=== PATIENT | male | born 1935 | race Caucasian/White ===

== ENCOUNTER 2016-09-21 18:40 | Inpatient (IN) | payer OTHER ==
[~2016-09-21] VITALS: Ht 172.7 cm; Wt 63.9 kg
--- NOTE | ~2016-09-21 | 2DMMODE ---
[facility] [place] [address] 2 D/M-MODE ECHOCARDIOGRAM Name: JONATHAN DEY Room #: 217-P [facility]#: [id number] Admission: 09/21/16 Attend Phys: Derick Sullivan, Discharge: Date of : 35 Date of Service: 09/23/16 0836 Report #: [id number] THIS REPORT FOR: //name// Transthoracic Echocardiography Ordering physician: Marina Cardona Referring physician: Marina Cardona Manager Enrollment: ERIK Bowen Indications/History: COPD, CAD, CABG, HTN, Asystole. BP: 105 / HR: 64bpm Height: 67in Weight: 170.6lb 58 Study data: M-mode, complete 2D, complete spectral Doppler, and color Doppler. Location: Bedside. Routine. Image quality was good. 2D measurements Normal Normal LVID ED 50.1mm 36-57 IVS ED 10.9mm 6-11 LVID ES 32.8mm 23-40 LVPW ED 11.1mm 6-11 LA volume index 2ml/m2 16-28 AoRoot diam ED 34.8mm 21-37 LVOT diameter 20mm 18-23 Findings: Left ventricle: The cavity size was normal. Wall thickness was at the upper limits of normal. Systolic function was normal. The estimated ejection fraction was in the range of 55% to 60%. Wall motion was normal. Right ventricle: The cavity size was at the upper limits of normal. Systolic function was normal. Right atrium: The atrium was mildly dilated. Left atrium: The atrium was normal in size. Volume index: 2ml/m2 (S). Aortic valve: Trileaflet; mildly thickened, mildly calcified leaflets. Doppler: There was no stenosis. Mild regurgitation. Peak velocity: 111cm/s (S). Mitral valve: Mildly calcified annulus. Doppler: There was no evidence for stenosis. Mild regurgitation. [facility] [address] [place] [address] 2 D/M-MODE ECHOCARDIOGRAM Name: JONATHAN DEY Room #: 217-P [facility] IN ..#: [id number] Admission: 09/21/16 Attend Phys: Derick Sullivan, Discharge: Date of : 35 Date of Service: 09/23/16 0836 Report #: [id number] E-wave velocity: 101.7cm/s. Peak gradient: 4.1mm Hg (D). Peak A-wave velocity: 68.7cm/s. Tricuspid valve: Structurally normal valve. Doppler: There was no evidence for stenosis. Mild regurgitation. Regurgitant peak velocity: 245.3cm/s. Peak RV-RA gradient: 24mm Hg (S). Pulmonic valve: Structurally normal valve. Doppler: There was no evidence for stenosis. Trivial regurgitation. Pericardium: There was no pericardial effusion. Aorta: Aortic root: The aortic root was normal in size. Pulmonary artery: Systolic pressure was estimated to be 30mm Hg. Diastolic function: Features are consistent with a pseudonormal left ventricular filling pattern, with concomitant abnormal relaxation and increased filling pressure (grade 2 diastolic dysfunction). Systemic veins: Inferior vena cava: The vessel was normal in size; the respirophasic diameter changes were in the normal range (= 50%). Conclusions 1. Left ventricle: Systolic function was normal. The estimated ejection fraction was in the range of 55% to 60%. Wall motion was normal. Features are consistent with a pseudonormal left ventricular filling pattern, with concomitant abnormal relaxation and increased filling pressure (grade 2 diastolic dysfunction). 2. Aortic valve: Trileaflet; mildly thickened, mildly calcified leaflets. There was no stenosis. Mild regurgitation. 3. Mitral valve: Mildly calcified annulus. Mild regurgitation. 4. Pulmonary arteries: Systolic pressure was estimated to be 30mm Hg. 5. Pericardium, extracardiac: There was no pericardial effusion. <ELECTRONICALLY SIGNED> By: Héctor Montano MD, [facility] 09/23/1631 0836 Héctor Montano MD, [facility] /geovany
--- NOTE | ~2016-09-21 | HC ---
[facility] [place] [address] CONSULTATION Name: JONATHAN DEY Room #: 217-P [facility] [place] .R.#: [id number] Admission: 09/21/16 Attend Phys: Derick Sullivan DO Discharge: Date of : 35 Report #: [id number] THIS REPORT FOR: //name// CC: BEST Sullivan DATE OF SERVICE: 09/22/2016 REASON FOR CONSULTATION: Asystole. HISTORY OF PRESENT ILLNESS: This is an 81-year-old gentleman who was admitted through the Emergency Room with complaints of dizziness. He has been having issues with his gait and his dizziness intermittently for several days. He notes that he has had blood pressure fluctuations and he has had this for quite some time. He presented primary for vertiginous symptoms that had been much worse on the day of admission than he had been previously. He was unable to maintain his balance and was quite concerned about this. He had been admitted yesterday and had done well until this morning where he did not feel right and thought his blood pressure was either too high or too low when his rhythm demonstrated development of bradycardia and subsequent asystole. He recurred rhythm by shaking and mild chest compressions. He has a history of atrial fibrillation in the past, but has never had syncopal episodes such as this. He denies any chest pain, pressure tightness or heaviness in the present time, although he does have coronary artery disease. He is on metoprolol and antihypertensive medications. No dependent or nondependent edema. PAST MEDICAL HISTORY: Significant for: 1. Coronary artery disease. 2. Paroxysmal atrial fibrillation on anticoagulation for elevated CHADS-VASc score. 3. Varicose veins. 4. Hypertension. ALLERGIES: Ramipril, morphine and tramadol. PAST SURGICAL HISTORY: 1. Aortocoronary bypass grafting x 2. 2. Vein stripping of the left arm. 3. Rotator cuff surgery bilaterally. MEDICATIONS: Losartan-hydrochlorothiazide, Cymbalta, Nasacort, Spiriva. SOCIAL HISTORY: The patient does not smoke, consume alcohol, does not follow particular exercise regimen or dietary restriction. ELECTROCARDIOGRAM: On admission was normal sinus rhythm, nonspecific ST-T wave [address] [address] CONSULTATION Name: JONATHAN DEY Room #: 217-P [facility] [place] ..#: [id number] Admission: 09/21/16 Attend Phys: Derick Sullivan DO Discharge: Date of : 35 Report #: [id number] changes. Monitored today demonstrates sinus bradycardia with asystole. LABORATORY DATA: Potassium 4.1, BUN and creatinine are 11 and 0.9. H and H 15.4 and 45.1 with a platelet count 260,000. RADIOLOGIC: Chest x-ray failed to demonstrate any acute processes on admission. REVIEW OF SYSTEMS: Except for symptoms that are previously mentioned and those commensurate with comorbid states, the 10-point review of systems is negative. PHYSICAL EXAMINATION: GENERAL: Well-developed white male, resting comfortably now, in no acute distress. VITAL SIGNS: Noted and reviewed in the chart. HEENT: Normocephalic, atraumatic. Pupils are equal, round, reactive to light and accommodation. Extraocular muscles are intact. Sclerae and conjunctivae are anicteric. NECK: JVD is normal. Carotid upstrokes are bilaterally symmetrical. No bruits are heard. No thyromegaly. No lymphadenopathy. LUNGS: Clear to auscultation. No wheezes, rhonchi or crackles. No CVA tenderness. CARDIAC: Demonstrates irregular rhythm. Soft systolic murmur is noted. ABDOMEN: Soft, nontender, nondistended. Normal bowel sounds. EXTREMITIES: Without cyanosis, clubbing or edema. Distal pulses are intact. DTR symmetrical. NEUROLOGIC: Cranial nerves 2-12 are grossly normal and symmetrical. PSYCHIATRIC: Alert, oriented with normal affect. SKIN: Warm and dry. IMPRESSION: 1. Asystole multifactorial. I am not sure that we will ever figure this out exactly, but he is asymptomatic now, he is doing very well, there are no signs of acute current of injury and in view of this would just observe for now. 2. Atrial fibrillation, paroxysmal, anticoagulated, well controlled, may be a factor in his symptoms with his medications, but cannot be certain, would just monitor and observe. 3. Hypertension. Not an issue at this juncture. <ELECTRONICALLY SIGNED> By: Rudy Renae MD 09/23/16 1152 [id number] 0623 Rudy Renae MD /nt
--- NOTE | ~2016-09-21 | EKG ---
[place] [address] [facility] [place] [address] ELECTROCARDIOGRAM REPORT Name: JONATHAN DEY Room #: 217-P ADM IN M.R.#: [id number] Admission: 09/21/16 Attend Phys: Rui Martinez MD Discharge: Date of : 35 Report #: [id number] THIS REPORT FOR: //name// [facility] ED Test Date: 2016-09-21 Test Time: 19:37:01 Pat Name: JONATHAN DEY Department: Room: 217 Gender: M Block Mason: halie : 1935 Requested By: Kimmy Matthews Order Number: [id number] MD: Héctor Montano Measurements Intervals [place] Rate: 68 P: 257 KS: 129 QRS: -11 QRSD: 99 T: 35 QT: 396 QTc: 422 Interpretive Statements Sinus or ectopic atrial rhythm Baseline wander in lead(s) II,V4 No previous ECG available for comparison Electronically Signed On 09-22-2016 8:06:07 GROUNDSKEEPER PORTER by Héctor Montano [email or web address] <ELECTRONICALLY SIGNED> By: Héctor Montano MD, [facility] 09/22/16805 36 36 Héctor Montano MD, [facility] /EPI
--- NOTE | ~2016-09-21 | HC ---
[facility] [place] [address] CONSULTATION Name: JONATHAN DEY Room #: 217-P [facility] IN M.R.#: [id number] Admission: 09/21/16 Attend Phys: Derick Sullivan DO Discharge: Date of : 35 Report #: [id number] THIS REPORT FOR: //name// CC: BEST Sullivan HISTORY OF PRESENT ILLNESS: The patient is an 81-year-old white male who was admitted with dizziness, noted to have hypertension, question of TIA. He does have some carotid stenosis. He was noted to have a systole with paroxysmal atrial fibrillation. No further advance of a asystole remaining asymptomatic on the classroom monitor. With the intermittent dizziness, neurology saw him and indicated that he possibly has benign postural positional vertigo, less likely TIA. He is on meclizine. We are seeing him in rehabilitation medicine consultation. PAST MEDICAL HISTORY: Includes hypertension, atrial fibrillation, coronary artery bypass grafting x 2, rotator cuff surgery both arms, neuropathy both feet, COPD, carotid stenosis, depression. HABITS: Former tobacco smoker, 1 pack per day for 40 years. No history of ETOH abuse. MEDICATIONS: Please see the full medication listing. ALLERGIES: RAMIPRIL, MORPHINE, TRAMADOL. REVIEW OF SYSTEMS: Did not offer any current complaints of chest pain, shortness of breath or abdominal discomfort. SOCIAL HISTORY: Lives in a house alone, 2 steps. Did not utilize gait aids. Daughter lives close by. He was premorbidly independent with ADLs. PHYSICAL EXAMINATION: GENERAL: He is a pleasant 81-year-old white male in no obvious distress. VITAL SIGNS: Last recorded temperature is 98.1, pulse 62, respirations 18, blood pressure 142/45. NEUROLOGIC: The patient is alert. He is pleasant. He is a good historian. EOMs appeared to be full without nystagmus. Faces are symmetric. He has functional range of motion of both upper extremities without obvious focal weakness. Appeared good. LOWER EXTREMITIES: No focal calf swelling, functional range of motion with good strength. DTRs are trace to 1. IMPRESSION: An 81-year-old white male with the following problem list: 1. Dizziness, possibly BPPV less likely TIA as per Neurology. 2. Difficulty walking, which he notes is improving. He is utilizing the [address] [address] CONSULTATION Name: JONATHAN DEY Room #: 217-P [facility] IN M.R.#: [id number] Admission: 09/21/16 Attend Phys: Derick Sullivan DO Discharge: Date of : 35 Report #: [id number] walker, which is new for him. 3. Asystole, multifactorial, continuing classroom monitor for now. 4. Paroxysmal atrial fibrillation noted to be stable. 5. Hypertension. 6. Carotid stenosis. 7. Dyslipidemia. PLAN: Therapy evaluations are underway. He will likely be too high level to warrant an acute in-hospital inpatient rehabilitation stay, but we will need to see how he does. If he is able to return back to the home setting, he may benefit from a short episode of some outpatient physical therapy to work on balance and vestibular issues. At this point, PT and OT are further evaluating him we will be glad to follow. Insurance issues would also need to be checked regarding any further rehab therapy options. Again, at this point, would appear most likely that outpatient physical therapy will be warranted, but we will continue to follow. <ELECTRONICALLY SIGNED> By: Alberto Tejada MD 09/27/16 1624 1135 1342 Alberto Tejada MD /nt
--- NOTE | ~2016-09-21 | P ---
[facility] [place] [address] PROCEDURE REPORT Name: JONATHAN DEY Room #: 217-P [facility] IN M.R.#: [id number] Admission: 09/21/16 Attend Phys: Derick Sullivan DO Discharge: 09/29/16 Date of : 35 Report #: [id number] THIS REPORT FOR: //name// CC: BEST DURAN Derick Sullivan DATE OF SERVICE: 09/26/2016 IMPLANTABLE LOOP RECORDER AND ELECTROPHYSIOLOGY STUDY PREOPERATIVE DIAGNOSIS: Syncope, sinus bradycardia, possible sick sinus syndrome, and atrial fibrillation. HISTORY OF PRESENT ILLNESS: The patient is an 81-year-old presenting with lightheadedness with a known history of AFib, found to have some sinus bradycardia and also had a syncopal episode in the hospital with a 20-second pause of unclear etiology. He is here for EP study looking for sick sinus syndrome as well as conduction disease who will either undergo pacemaker implantation or implantable loop recorder insertion. PROCEDURE: The patient underwent informed consent. We discussed the details of the procedure including the risks, which include but not limited to bleeding, infection, vascular damage, cardiac perforation, and pneumothorax. He understood these risks and is willing to proceed. The patient was brought to the EP laboratory in a fasting and sedated state and underwent MAC anesthesia performed by the Anesthesiology service. After being prepped in a sterile fashion, I injected 10 mL of lidocaine into the right femoral groin region and obtained access to the right femoral vein times 2 placing two 6-Nepalese short sheaths using the modified Seldinger technique, and under fluoroscopic guidance, I placed a HRA catheter and a His catheter. At baseline, the patient was in sinus rhythm with sinus cycle length of 775 milliseconds, CO interval 260 milliseconds, QRS duration 80 milliseconds, QT interval 388 milliseconds, AH interval 153 milliseconds, and HV interval 45 milliseconds. Next, atrial burst pacing was performed and AV block was noted at 330 milliseconds. AV brandie ERP was noted at 280 milliseconds at a 500-millisecond basic drive cycle length. No SVT was induced. Next, sinus node recovery time was performed ____ the sinus node recovery time was 1200 milliseconds, pacing at 400 milliseconds, the sinus node recovery time was 1080 milliseconds, and the sinus node recovery time pacing at 300 milliseconds was 1130 milliseconds. As such, there was no evidence of any significant SA brandie or AV brandie or His-Purkinje disease. As such, the patient was prepped and draped in a sterile fashion for implantation of a loop recorder. An incision was made and the Biotronik BioMonitor 2 was injected into the skin. Two layers of suture were performed and a dressing was placed. There was no significant complications. The patient awoke neurologically and hemodynamically intact with no complications and no significant bleeding. The BioMonitor 2 had a reference number of [id number], serial [address] [address] PROCEDURE REPORT Name: JONATHAN DEY Room #: 217-P [facility] IN ..#: [id number] Admission: 09/21/16 Attend Phys: Derick Sullivan DO Discharge: 09/29/16 Date of : 35 Report #: [id number]. The device was set to its normal settings. CONCLUSIONS: 1. Normal EP study with no evidence of significant SA brandie, AV brandie, or His-Purkinje disease. 2. No inducible arrhythmias. 3. Successful implantation of a BioMonitor 2. <ELECTRONICALLY SIGNED> By: Rashi Weinberg MD 09/30/16 1223 1458 2317 Rashi Weinberg MD /nt
--- NOTE | ~2016-09-21 | EKG ---
[address] [address] ELECTROCARDIOGRAM REPORT Name: JONATHAN DEY Room #: 217-P ADM IN M.R.#: [id number] Admission: 09/21/16 Attend Phys: Derick Sullivan DO Discharge: Date of : 35 Report #: [id number] THIS REPORT FOR: //name// [facility] Test Date: 2016-09-22 Test Time: 12:51:14 Pat Name: JONATHAN DEY Department: Room: 217 P Gender: M Repair Tech: JOYCE : 1935 Requested By: Derick Sullivan Order Number: [id number] MD: Rashi Weinberg Measurements Intervals [place] Rate: 57 P: AL: QRS: -1 QRSD: 99 T: 60 QT: 448 QTc: 437 Interpretive Statements Atrial fibrillation Borderline low voltage, extremity leads Compared to ECG 09/21/2016 19:37:01 Ectopic atrial rhythm no longer present Electronically Signed On 09-22-2016 15:53:45 WAREHOUSE WORKER 2ND SHIFT by Rashi Weinberg [email or web address] <ELECTRONICALLY SIGNED> By: Rashi Weinberg MD 09/22/16 1553 1251 1251 Rashi Weinberg MD /DYAN
--- NOTE | ~2016-09-21 | EKG ---
[address] [address] ELECTROCARDIOGRAM REPORT Name: KORICOURTNEYJONATHAN Kamryn Room #: 217-P ADM IN M.R.#: [id number] Admission: 09/21/16 Attend Phys: Derick Sullivan DO Discharge: Date of : 35 Report #: [id number] THIS REPORT FOR: //name// [facility] Test Date: 2016-09-24 Test Time: 10:17:14 Pat Name: JONATHAN DEY Department: Room: 217 P Gender: M Residence Life Coordinator: JOYCE : 1935 Requested By: Rashi Weinberg Order Number: [id number] MD: Rashi Weinberg Measurements Intervals [place] Rate: 67 P: -24 MD: 245 QRS: -10 QRSD: 92 T: 58 QT: 379 QTc: 400 Interpretive Statements Sinus rhythm Prolonged MD interval Inferior infarct, old Compared to ECG 09/22/2016 12:51:14 First degree AV block now present Myocardial infarct finding now present Atrial fibrillation no longer present Electronically Signed On 09-24-2016 16:34:22 MANAGER GENERATION by Rashi Weinberg [email or web address] <ELECTRONICALLY SIGNED> By: Rashi Weinberg MD 09/24/16 1634 1017 1017 Rashi Weinberg MD /EPI
--- NOTE | ~2016-09-21 | HC ---
[facility] [place] [address] CONSULTATION Name: JONATHAN DEY Room #: 217-P [facility] IN M.R.#: [id number] Admission: 09/21/16 Attend Phys: Derick Sullivan DO Discharge: Date of : 35 Report #: [id number] THIS REPORT FOR: //name// CC: BEST ROGER Derick Sullivan DATE OF SERVICE: 09/27/2016 SENIOR INSTRUCTIONAL DESIGNER: Lenard Jose M.D. REASON FOR CONSULTATION: Dizziness. HISTORY OF PRESENT ILLNESS: The patient is an 81-year-old male who was admitted 7 days ago with acute onset of dizziness. This occurred at 11:00 a.m. on the morning of 09/20/2016. He had been to his chiropractor earlier that day and had some manipulation of the spine. He did not have any manipulation of the neck. He was at home and noticed acute onset of dizziness. The dizziness is described as a sensation of horizontal movement of the environment and is aggravated by head movement from right to left or left to right. It is also aggravated by standing. The dizziness is present most of the time, but aggravated by positional change. He has severe unsteadiness and states he can no longer walk without assistance. He has had a negative MRI scan. He has had a cardiology evaluation and neurology evaluation. He has multiple medical problems. He is known to have internal carotid artery atherosclerotic disease. He denies recent change in hearing and he denies significant tinnitus. This dizziness was not preceeded by respiratory infection. PAST MEDICAL HISTORY: Hypertension, atrial fibrillation, coronary artery bypass grafting, rotator cuff surgery, neuropathy, COPD, carotid artery stenosis, depression. SOCIAL HISTORY: Former smoker, but quit 25 years ago. No alcohol abuse. ALLERGIES: RAMIPRIL, MORPHINE, and TRAMADOL. MEDICATIONS ON ADMISSION: Losartan/HCTZ, Cymbalta, Nasacort, and Spiriva. PHYSICAL EXAMINATION: GENERAL: Pleasant elderly male in no acute distress. HEENT: Ears, normal tympanic membranes. Nose, dry mucosa on the left side with mild scabbing and bleeding. Right side is normal. Oral, normal mucosa and good dentition. NECK: No palpable adenopathy or masses. NEUROLOGIC: Cranial nerves 2 through 12 are normal. Dekalb-Hallpike maneuver was performed in both head hanging in right and head hanging left position. There was no obvious horizontal or rotary nystagmus noted. On upward gaze, he does [facility] [address] [place] [address] CONSULTATION Name: JONATHAN DEY Room #: 217-P [facility] IN ..#: [id number] Admission: 09/21/16 Attend Phys: Derick Sullivan DO Discharge: Date of : 35 Report #: [id number] have horizontal nystagmus when he is put through the Ronni-Hallpike maneuver. ASSESSMENT: 1. Vestibular dysfunction suspected (some of his description sounds like BPPV (benign paroxysmal positional vertigo). I would recommend that vestibular physical therapy and Charanjit maneuvers be attempted. 2. The gait disturbance is somewhat bothersome. This seems out of proportion to most vestibular dysfunction. I think this warrants more close neurologic attention. <ELECTRONICALLY SIGNED> By: Lenard Jose MD 09/28/162055 1904 09 Lenard Jose MD /nt
[2016-09-21 18:44] VITALS: BP 194/91
[2016-09-21] MEDS ORDERED: LOSARTAN-HCTZ1 EAC2 PO (19:38)
[2016-09-21] MEDS ORDERED: NASACORT10.8 ML NS (19:39)
[2016-09-21] MEDS ORDERED: SPIRIVA18 MCG INH (19:39)
[2016-09-21] MEDS ORDERED: CYMBALTA20 MG PO (19:39)
[2016-09-21 20:05] LABS: ABSOLUTE NEUTROPHILS 8.1 thou/uL (1.4-8.2); BASOPHILS 0.3 % (0.0-2.0); EOSINOPHILS 2.7 % (0.0-3.0); HEMATOCRIT 45.1 % (42.0-52.0); HEMOGLOBIN 15.4 gm/dL (14.0-18.0); LYMPHOCYTES 22.5 % (24.0-44.0); MCH 28.5 pg (26.0-34.0); MCHC 34.1 % (28.0-37.0); MCV 83.6 fL (80.0-100.0); MONOCYTES 6.4 % (1.0-8.0); PLATELET COUNT 260 thou/uL (150-400); POLYS 68.1 % (36.0-66.0); RDW 13.7 % (10.5-14.5); WBC 11.9 thou/uL (4.0-11.0)
[2016-09-21 20:14] LABS: CALCIUM 9.7 mg/dL (8.5-10.1); CREATININE 0.9 mg/dL (0.6-1.3); POTASSIUM 4.1 mmol/L (3.5-5.1)
[2016-09-21 20:16] LABS: MANUAL DIFF NO
[2016-09-21 20:18] LABS: INR 2.2; PROTIME 23.2 Seconds (9.3-11.4)
[2016-09-21 21:25] VITALS: BP 152/72
[2016-09-21] MEDS ORDERED: TOPROL XL25 MG PO (21:57)
[2016-09-21] MEDS ORDERED: COUMADIN 5 MG TA5 M1 PO (21:58)
[2016-09-21] MEDS ORDERED: ASPIR 8181 M1 PO (22:00)
[2016-09-21] MEDS ORDERED: AMBIEN 5 MG TABL5 M1 PO (22:03)
[2016-09-21] MEDS ORDERED: ATIVAN0.5 M1 PO (22:05)
[2016-09-21] MEDS ORDERED: NEURONTIN300 MG PO (22:09)
[2016-09-21] MEDS ORDERED: DOXYCYCLINE 10100 MG PO ×2 (22:11→22:12)
[2016-09-21] MEDS ORDERED: UNICOMPLEX M TA1 TA1 PO (22:13)
[2016-09-21] MEDS ORDERED: PROPRANOLOL 1010 MG PO ×2 (22:14→22:15)
[2016-09-22] VITALS (8 sets, daily range): BP systolic 114–166; BP diastolic 57–83
[2016-09-22 13:36] LABS: MAGNESIUM 2.1 mg/dL (1.8-2.4); PHOSPHORUS 3.5 mg/dL (2.5-4.9); TROPONIN-I < 0.04 ng/mL (<0.04-0.07)
[2016-09-22 14:14] LABS: CHOLESTEROL 213 mg/dL (<200); HDL CHOLESTEROL 42 mg/dL (>40); LDL CHOLESTEROL 141 mg/dL (<100); TC:HDL 5.1 Ratio (Not establshd); TRIGLYCERIDE 150 mg/dL (<150); VLDL 30 mg/dL (<40)
[2016-09-22] MEDS ORDERED: GABAPENTIN 100100 MG PO (20:37)
[2016-09-22 22:10] LABS: GLYCOHEMOGLOBIN (HGB A1C) 5.6 % (4.8-5.6)
[2016-09-23] VITALS (9 sets, daily range): BP systolic 108–166; BP diastolic 43–76
[2016-09-23 04:08] LABS: ABSOLUTE NEUTROPHILS 6.1 thou/uL (1.4-8.2); BASOPHILS 0.3 % (0.0-2.0); EOSINOPHILS 3.2 % (0.0-3.0); HEMOGLOBIN 13.8 gm/dL (14.0-18.0); LYMPHOCYTES 25.3 % (24.0-44.0); MCH 28.6 pg (26.0-34.0); MCHC 33.7 % (28.0-37.0); MCV 84.8 fL (80.0-100.0); MONOCYTES 8.5 % (1.0-8.0); PLATELET COUNT 221 thou/uL (150-400); POLYS 62.7 % (36.0-66.0); RBC 4.84 mil/uL (4.50-6.00); RDW 13.5 % (10.5-14.5); WBC 9.8 thou/uL (4.0-11.0)
[2016-09-23 04:11] LABS: MANUAL DIFF NO
[2016-09-23 04:25] LABS: CALCIUM 8.8 mg/dL (8.5-10.1); CREATININE 0.9 mg/dL (0.6-1.3)
[2016-09-24 05:46] VITALS: BP 117/65
[2016-09-24 07:45] VITALS: BP 167/84
[2016-09-24 12:05] VITALS: BP 109/77
[2016-09-24 16:50] VITALS: BP 106/54
[2016-09-24 20:29] VITALS: BP 166/70
[2016-09-25 03:04] VITALS: BP 123/53
[2016-09-25 08:00] VITALS: BP 128/55
[2016-09-25 11:24] LABS: INR 1.9; PROTIME 19.8 Seconds (9.3-11.4)
[2016-09-25 11:40] VITALS: BP 118/80; BP 122/50
[2016-09-25 16:20] VITALS: BP 135/58
[2016-09-25 19:32] VITALS: BP 159/66
[2016-09-26 03:56] VITALS: BP 143/63
[2016-09-26 04:11] LABS: INR 1.6; PROTIME 17.1 Seconds (9.3-11.4)
[2016-09-26 04:17] LABS: HEMATOCRIT 39.2 % (42.0-52.0); HEMOGLOBIN 13.3 gm/dL (14.0-18.0); MCH 28.8 pg (26.0-34.0); MCHC 33.9 % (28.0-37.0); MCV 84.9 fL (80.0-100.0); PLATELET COUNT 199 thou/uL (150-400); RBC 4.62 mil/uL (4.50-6.00); RDW 13.6 % (10.5-14.5); WBC 10.5 thou/uL (4.0-11.0)
[2016-09-26 04:25] LABS: CALCIUM 8.7 mg/dL (8.5-10.1); CREATININE 0.9 mg/dL (0.6-1.3); MAGNESIUM 2.1 mg/dL (1.8-2.4); MANUAL DIFF YES; POTASSIUM 3.9 mmol/L (3.5-5.1)
[2016-09-26 08:25] VITALS: BP 124/40
[2016-09-26 09:14] LABS: ABSOLUTE NEUTROPHILS 7.4 thou/uL (1.4-8.2); PLATELET ESTIMATE NORMAL; TOTAL CELL COUNT 100
[2016-09-26 16:10] VITALS: BP 151/72
[2016-09-26 19:44] VITALS: BP 157/71
[2016-09-26 20:42] VITALS: BP 152/66
[2016-09-27] VITALS (8 sets, daily range): BP systolic 103–154; BP diastolic 54–76
[2016-09-27 04:17] LABS: HEMATOCRIT 37.9 % (42.0-52.0); HEMOGLOBIN 12.8 gm/dL (14.0-18.0); MCH 28.7 pg (26.0-34.0); MCHC 33.9 % (28.0-37.0); MCV 84.7 fL (80.0-100.0); PLATELET COUNT 213 thou/uL (150-400); RBC 4.47 mil/uL (4.50-6.00); RDW 13.6 % (10.5-14.5); WBC 9.9 thou/uL (4.0-11.0)
[2016-09-27 04:18] LABS: MANUAL DIFF YES
[2016-09-27 04:22] LABS: INR 1.3; PROTIME 13.7 Seconds (9.3-11.4)
[2016-09-27 04:56] LABS: ABSOLUTE NEUTROPHILS 6.1 thou/uL (1.4-8.2); ATYPICAL LYMPHS 7 %; TOTAL CELL COUNT 100
[2016-09-28] VITALS (7 sets, daily range): BP systolic 128–163; BP diastolic 56–76
[2016-09-28 04:36] LABS: ABSOLUTE NEUTROPHILS 4.7 thou/uL (1.4-8.2); BASOPHILS 0.4 % (0.0-2.0); EOSINOPHILS 2.9 % (0.0-3.0); HEMATOCRIT 38.4 % (42.0-52.0); HEMOGLOBIN 12.9 gm/dL (14.0-18.0); LYMPHOCYTES 27.4 % (24.0-44.0); MCH 28.5 pg (26.0-34.0); MCHC 33.6 % (28.0-37.0); MCV 84.9 fL (80.0-100.0); MONOCYTES 11.7 % (1.0-8.0); PLATELET COUNT 216 thou/uL (150-400); POLYS 57.6 % (36.0-66.0); RBC 4.53 mil/uL (4.50-6.00); RDW 13.4 % (10.5-14.5); WBC 8.2 thou/uL (4.0-11.0)
[2016-09-28 04:39] LABS: MANUAL DIFF NO
[2016-09-28 05:05] LABS: CALCIUM 8.6 mg/dL (8.5-10.1); CREATININE 0.9 mg/dL (0.6-1.3)
[2016-09-29 05:11] VITALS: BP 125/64
[2016-09-29 07:33] VITALS: BP 141/72
[2016-09-29] MEDS ORDERED: ANTIVERT25 MG PO (09:43)
[2016-09-29] MEDS ORDERED: AMBIEN 5 MG TABL5 M1 PO (09:43)
[2016-09-29] MEDS ORDERED: DOXYCYCLINE 10100 MG PO (09:43)
[2016-09-29 11:32] VITALS: BP 122/71
[2016-09-29 16:23] VITALS: BP 151/77
== END 2016-09-29 17:25 | DRG 260 ==
LOC: ER 18:40 → 2N 20:48 → EROBS 20:48 → 2N 21:32
PROVIDERS: Emergency Medicine; Family Medicine; Internal Medicine; Internal Medicine Cardiovascular Disease; Internal Medicine Endocrinology, Diabetes & Metabolism; Psychiatry & Neurology Neurology
PROC: 4A12X4Z Monitoring of Cardiac Electrical Activity, External Approach (ICD-10-PCS; principal; 2016-09-26)
PROC: 0JH632Z Insertion of Monitoring Device into Chest Subcutaneous Tissue and Fascia, Percutaneous Approach (ICD-10-PCS; principal; 2016-09-26)
DX: I49.5 Sick sinus syndrome (principal); I46.9 Cardiac arrest, cause unspecified; I16.0 Hypertensive urgency; I10 Essential (primary) hypertension; F32.9 Major depressive disorder, single episode, unspecified; M19.072 Primary osteoarthritis, left ankle and foot; M19.071 Primary osteoarthritis, right ankle and foot; H81.90 Unspecified disorder of vestibular function, unspecified ear; Z66 Do not resuscitate; G62.9 Polyneuropathy, unspecified; I25.10 Atherosclerotic heart disease of native coronary artery without angina pectoris; I48.0 Paroxysmal atrial fibrillation; I65.29 Occlusion and stenosis of unspecified carotid artery; J44.9 Chronic obstructive pulmonary disease, unspecified; Z60.2 Problems related to living alone; E78.5 Hyperlipidemia, unspecified; Z87.891 Personal history of nicotine dependence; Z88.6 Allergy status to analgesic agent; Z95.1 Presence of aortocoronary bypass graft; Z79.01 Long term (current) use of anticoagulants; Z88.8 Allergy status to other drugs, medicaments and biological substances; K80.20 Calculus of gallbladder without cholecystitis without obstruction; I65.23 Occlusion and stenosis of bilateral carotid arteries; H81.10 Benign paroxysmal vertigo, unspecified ear
CPT/HCPCS: 10081; 62110; 70005